=== PATIENT | male | born 1990 | race Caucasian/White ===

== ENCOUNTER → 2023-12-02 | Day surgery (SDC) | payer OTHER ==
[~2023-12-02] VITALS: Ht 177.8 cm; Wt 86.8 kg
[~2023-12-02] MED LIST: NS 1,000 ML IV ONE
[2023-12-02 12:44] VITALS: BP 146/87; TEMP 97.4; O2SAT 99
== END | disposition home or self-care (01) ==
LOC: M OPP 11:55
PROVIDERS: ATTEND Internal Medicine Gastroenterology
DX: R11.10 Vomiting, unspecified (principal)